=== PATIENT | male | born 2000 | race Caucasian/White ===

== ENCOUNTER 2021-03-21 18:24 | Emergency (ER) | payer MEDICAID, SELFPAY ==
--- NOTE | ~2021-03-21 | XR_ITS ---
EXAMINATION: XR chest 1V CLINICAL INFORMATION: Reason for Exam COUGH X 2 WEEKS, SOB COMPARISON: Chest radiograph 03/24/2019 TECHNIQUE: One view of the chest XR/XR chest 1V FINDINGS/IMPRESSION: Approximately 1.4 cm right basilar airspace opacity with an almost nodular appearance new from prior. Differential considerations would include developing infection if clinical history is appropriate, asymmetric appearance of a nipple shadow which could be confirmed with oblique radiographs with nipple markers, alternatively an underlying pulmonary nodule, which could be confirmed with a chest CT. Recommend correlation with clinical history and follow-up imaging as appropriate and to ensure resolution. No pneumothorax. No pleural effusion. Normal cardiomediastinal silhouette.
[2021-03-21 18:46] VITALS: PULSE 120; RESP 18; TEMP 36.7; O2SAT 99; BMI 16.0
[2021-03-21 19:21] VITALS: BP 129/71; PULSE 110; RESP 17; TEMP 37.9; O2SAT 97
[2021-03-21] MEDS: Ibuprofen 600 MG TABLET PO (19:35)
[2021-03-21 19:42] LABS: COVID-19 Test Negative (Negative); IDNOW Serial# 9DD0AD1C
--- NOTE | 2021-03-21 20:00 | ED_ITS ---
HPI - General Adult General Chief complaint: General Medical Stated complaint: asthma,sob Time Seen by Provider: 03/21/21 19:43 Source: patient Mode of arrival: ambulatory Limitations: no limitations History of Present Illness HPI narrative: 20-year-old male presents to ED coughing for 2 weeks body aches and chills. Patient states receiving Moderna 2 doses. Patient has not received booster. Patient denies any shortness of breath. Patient states history of asthma Related Data Previous Rx's Medication Instructions Recorded azithromycin 250 mg tablet See Rx Instructions .ROUTE 03/21/21 .COMPLEX #6 tab doxycycline hyclate 100 mg capsule 100 mg PO BID 7 Days #14 cap 03/21/21 prednisone 20 mg tablet 40 mg PO DAILY 5 Days #10 tab 03/21/21 Allergies Allergy/AdvReac Type Severity Reaction Status Date / Time No Known Allergies Allergy Unverified 11/29/19 18:47 Review of Systems Review of Systems: Yes all other systems are reviewed and are negative Constitutional: Constitutional: Reports as per HPI and Reports no additional constitutional complaints Eyes: Eyes: Reports as per HPI and Reports no additional eye complaints ENT: Reports system reviewed and no additional complaints, except as documented and Reports as per HPI Cardiovascular: Cardiovascular: Reports as per HPI and Reports no additional cardiovascular complaints Respiratory: Respiratory: Reports as per HPI and Reports no additional respiratory complaints Gastrointestinal: Gastrointestinal: Reports as per HPI and Reports no additional gastrointestinal complaints Musculoskeletal: Musculoskeletal: Reports no additional musculoskeletal complaints and Reports as per HPI Neurologic: Reports system reviewed and no additional complaints, except as documented and Reports as per HPI Psychiatric: Psychiatric: Reports no additional psychiatric complaints and Reports as per HPI [facility] Social History Social History Advance Directives: No Advance Directives Information Provided: No Physical Exam Vital Signs: Vital Signs: Last Vital Signs Temp 100.0 F 03/21/21 21:07 Pulse 109 H 03/21/21 21:07 Resp 17 03/21/21 21:07 BP 129/71 03/21/21 19:21 Pulse Ox 97 03/21/21 21:07 BMI result Body Mass Index 16.0 Const: General: cooperative, healthy appearing, comfortable, no acute distress, well developed, alert, awake and Physically active Orientation/consciousness: oriented to time and patient oriented x3 HENMT: Head: Yes normal to inspection, Yes No palpable skull fracture present, Yes normocephalic, Yes atraumatic and No abrasion Eyes: General: appearance normal, both eyes and all related structures Neck: Neck: Yes normal visual inspection, Yes full ROM, Yes no lymphadenopathy, Yes no meningeal signs, Yes trachea midline, Yes supple, No anterior neck swelling and No tender Chest: Chest palpation & inspection: normal inspection of the chest and normal palpation of entire chest wall Resp: Effort & Inspection: normal respiratory effort and able to speak in complete sentences Auscultation: clear to auscultation bilaterally Cardio: Jugular venous distension: no JVD Heart sounds: S1 normal heart sound present and S2 normal heart sound present GI: Inspection: Yes normal to inspection Palpation (GI): Soft to palpation, not firm, nontender, no guarding and not rigid : General: No CVA tenderness and Yes no CVA tenderness Back/Spine/Pelvis: Back: no CVA tenderness, No CVA tenderness and No back tenderness Skin: General skin exam: no rashes or lesions noted and elasticity normal Neuro: General: oriented to time, patient oriented x3, gait normal, no meningeal signs and CN's II-XI intact bilaterally Cranial nerves: Yes CN's II-XII intact bilaterally Extrem: General: Yes normal to inspection and Yes full ROM Psych: Appearance: grossly normal, well kempt and not disheveled Course Course Course Narrative: COVID chest x-ray ordered. Reevaluation(s) Reevaluation #1: COVID swab negative. Chest x-ray shows basilar opacity with history indicates pneumonia Time: 20:43 Medical Decision Making [facility] Narrative Medical decision making narrative: Pneumonia Lab Data Labs: Lab Results 03/21/21 Range/Units 18:48 COVID-19 (ESEQUIEL) Negative (Negative) COVID-19 Clin Com See Note Discharge Plan Discharge Clinical Impression: Pneumonia Patient Disposition: Home, Self-Care Instructions: Asthma (ED), Community Acquired Pneumonia (ED) Additional Instructions: Chest x-ray shows early pneumonia he will be discharged with antibiotics. Covid test came back negative after 2 weeks. Will be also discharged with prednisone your asthma. Take albuterol inhaler as needed. Return to the ED for worsening shortness of breath, coughing up blood, weakness, dizziness, or any other concerning symptoms. Please follow up with your PCP. Prescriptions: New azithromycin 250 mg tablet See Rx Instructions .ROUTE .COMPLEX Qty: 6 RF: 0 doxycycline hyclate 100 mg capsule 100 mg PO BID 7 Days Qty: 14 RF: 0 prednisone 20 mg tablet 40 mg PO DAILY 5 Days Qty: 10 RF: 0 Stand Alone Forms: Work/School Release Interventions: ED Discharge Assessment Last Done: 03/21/21 21:08 Discharge Date/Time: 03/21/21 21:10 Print Language: Citizen Of [place]
[2021-03-21 21:07] VITALS: PULSE 109; RESP 17; TEMP 37.8; O2SAT 97
== END 2021-03-21 21:10 | disposition home or self-care (01) ==
PROVIDERS: Emergency Provider Emergency Medicine
DX: J18.9 Pneumonia, unspecified organism (principal); Z20.822 Contact with and (suspected) exposure to COVID-19; R50.9 Fever, unspecified; J45.909 Unspecified asthma, uncomplicated
CPT/HCPCS: 71045; 87635; 99283; 99284

== ENCOUNTER 2024-12-25 10:06 | Outpatient (REF) | payer MEDICAID, SELFPAY ==
[2024-12-25 11:25] LABS: Alanine Aminotransferase 24 U/L (0-40); Albumin Level 4.7 g/dL (3.5-5.0); Alkaline Phosphatase 68 U/L (39-117); Anion Gap 9 (12-20); Aspartate Amino Transferase 24 U/L (5-37); Blood Urea Nitrogen 10 mg/dL (9-16); Calcium 9.0 mg/dL (8.4-10.2); Carbon Dioxide 28 mmol/L (22-29); Chloride 109 mmol/L (96-108); Cholesterol 182 mg/dL (<200); Estimated Glomerular Filt Rate > 60; HDL Cholesterol 63 mg/dL (>40); Potassium 4.8 mmol/L (3.3-5.1); Sodium 141 mmol/L (135-145); Total Protein 7.2 g/dL (6.5-8.0); Triglycerides 58 mg/dL (<150)
--- OUTSIDE RECORDS SUMMARY | 2024-12-25 11:40 | XMS_ITS | Clinical Summary ---
Author Organization [email or web address] Address [address] [place] [address] Care Team Providers Care Shirt Marker Name Role Phone NameMartin MD Primary Care Provider [phone] Allergies No known active allergies Medications Melatonin 10 MG tablet dispersible Take by mouth. Active Encounters Date Type Department Care Team Description 12/14/2024 1:15 PM EDT Office Visit [facility] [address] [place] [address] [phone] Martin Duron MD Insomnia, unspecified type (Primary Dx); Screening examination for STI; Screening for diabetes mellitus; Screening cholesterol level; Impacted cerumen of left ear; Vaccination refused by patient 12/14/2024 Travel 12/13/2024 Telephone [facility] [address] [place] [address] [phone] Martin Duron MD CHARTPREP 12/07/2024 Patient Outreach [facility] [address] [place], [place] [phone] Martin Duron MD Pre-visit Planning (SDOH negative. Tobacco screening negative) from Last 3 Months Family History Medical History Relation Name Comments No Known Problems Brother No Known Problems Father No Known Problems Mother No Known Problems Sister 1 No Known Problems Sister 2 Relation Name Status Comments Brother Alive Father Alive Mother Alive Sister 1 Alive Sister 2 Alive Social History Tobacco Use Types Packs/Day Years Used Date Smoking Tobacco: Never Smokeless Tobacco: Never Tobacco Cessation:Counseling Given: Not Answered Alcohol Use Standard Drinks/Week Comments Never 0 (1 standard drink = 0.6 oz pur e alcohol) Housing Stability Answer Date Recorded What is your housing situation today? I have [place] 12/07/[address] you li ve. Do you have problems with any of the following? None of the above 12/07/2024 Food Insecurity Answer Date Recorded Within the past 12 months, y ou worried that your food would run out before you got money to buy more: Never True 12/07/2024 Within the past 12 months,th e food you bought just didn't last and you didn't have enough money to get more: Never True Transportation Answer Date Recorded In the past 12 months, has l ack of transportation kept you from medical appts, meetings, work or from getting things needed for daily living? No 12/07/2024 Utilities Answer Date Recorded In the past 12 months, has t he electric, gas, oil or water company threatened to shut off services in your home? No 12/07/2024 Internet Access Answer Date Recorded Internet Access Q1 Yes 12/07/2024 Internet Access Q2 Not on file 12/07/2024 Sex and Gender Information Value Date Recorded Sex Assigned at Male 01/11/2022 10:22 AM EDT Legal Sex Male 10:22 AM EDT Gender Identity Male 01/11/2022 10:22 AM EDT Sexual Orientation Straight 01/11/2022 10 :22 AM EDT Last Filed Vital Signs Vital Sign Reading Time Taken Comments Blood Pressure 110/82 12/14/2024 1:14 PM EDT Pulse 74 12/14/2024 1:14 PM EDT Temperature 36.4 C (97.6 F) 12/14/2024 1:14 PM EDT Respiratory Rate 18 12/14/2024 1:14 PM EDT Oxygen Saturation 98% 12/14/2024 1:14 PM EDT Inhaled Oxygen Concentration - - Weight 57.9 kg (127 lb 9.6 oz) 12/14/2024 1:14 P M EDT Height 175.3 cm (5' 9 ) 12/14/2024 1:14 PM EDT Body Mass Index 18.84 12/14/2024 1:14 PM EDT Plan of Treatment Health Maintenance Due Date Last Done Comments Depression Screening 2000 HIV Screening 2000 Disability Screening 2000 Family Planning (PISQ) 2015 Hepatitis C Screening 2018 Pneumococcal Vaccine: Pediatrics (0 to 5 Years) and At-Risk Patients (6 to 49) Years (1 of 2 - PCV) 2019 DTaP/Tdap/Td Vaccines (6 - Td or Tdap) 01/19/2024 01/18/2014, 04/05/2005, 05/24/2001, Additional history exists COVID-19 Vaccine (3 - season) 2024 09/25/2020, 08/28/2020 Influenza Vaccine (#1) 2024 8, 11/25/2016, 12/06/2014, Additional history exists SDOH Screening 12/07/2025 12/07/2024 Alcohol/Substance Use Screening 12/14/2025 12/14/2024 Tobacco Screening 12/14/2025 12/14/2024 Zoster Vaccines (1 of 2) 2050 RSV Patients and Patients Aged 60 years or older (1 - 1-dose 75+ series) 2075 Hepatitis B Vaccines Completed 2000, 2000, 2000 HIB Vaccines Completed 2002, 05/12, 2000, Additional history exists IPV Vaccines Completed 04/05/2005, 11/12, 2000, Additional history exists HPV Vaccines Completed 07/07/2015, 11/13, 01/18/2014 Hepatitis A Vaccines Completed 07/07/2015, 12/07/19 15 Meningococcal Vaccine Completed 11/25/2016, 014 Meningococcal B Vaccine Aged Out No l onger eligible based on patient's age to complete this topic RSV under 20 months Aged Out No longe r eligible based on patient's age to complete this topic Rotavirus Vaccines Aged Out No longer eligible based on patient's age to complete this topic Procedures Procedure Name Priority Date/Time Associated Diagnosis Comments LIPID PANEL, STANDARD Routine 12/25/2024 10:22 AM EDT Screening cholesterol level COMPREHENSIVE METABOLIC PANEL Routine 12/25/2024 10:22 AM EDT Screening for diabetes mellitus from Last 3 Months Results * (ABNORMAL) Lipid Panel, Standard (12/25/2024 10:22 AM EDT) Triglycerides 58 <150 mg/dL [facility] Comment:Desirable Triglyceri de: less than 150 mg/dLBorderline High Triglyceride 150-199 mg/dLHigh Triglyceride: 200-499 mg/dLVery High Triglyceride: greater than or equal to 5OO mg/dL Cholesterol 182 <200 mg/dL [facility] Comment:Desirable Cholestero l: less than 200 mg/dLBorderline High Cholesterol: 200-239 mg/dLHigh Cholesterol: greater than 239 mg/dL LDL Cholesterol Calculated 108(H) <100 mg/dL [facility] Comment:Desirable LDL: less than 100 mg/dLNear Optimal/Above Optimal LDL: 110- 129 mg/dLBorderline High LDL: 130-159 mg/dLHigh LDL: 160-189 mg/dLVery High LDL: greater than or equal to 190 mg/dL HDL Cholesterol 63 >40 mg/dL [facility] Comment:Desirable HDL: great er than 40 mg/dL Note: This HDL assay may give artificially low results in patients with liver disease. Blood Venous blood specimen / Unknown 12/25/2024 10:22 AM EDT 12/25/2024 10:22 AM EDT us Martin Name MD LAB BLOOD ORDERABLES Final Resul t [facility] [address] [place] [phone] * (ABNORMAL) Comprehensive Metabolic Panel (12/25/2024 10:22 AM EDT) Sodium 141 135 - 145 mmol/L [facility] Potassium 4.8 3.3 - 5.1 mmol/L [facility] Chloride 109(H) 96 - 108 mmol/L [facility] Carbon Dioxide 28 22 - 29 mmol/L [facility] Anion Gap 9(L) 12 - 20 [facility] Urea Nitrogen (BUN) 10 9 - 16 mg/dL [facility] Creatinine, Serum 1.01 0.5 - 1.4 mg/dL [facility] Estimated Glomerular Filt Rate >60 [facility] Comment:Chronic Kidney Disea se: Estimated GFR < 60 mL/min/[id number] Kidney Disease: Estimated GFR < 15 mL/min/1.73m2 Glucose 88 60 - 115 mg/dL [facility] Calcium 9.0 8.4 - 10.2 mg/dL [facility] Bilirubin, Total 0.7 0.0 - 1.0 mg/dL [facility] Aspartate Amino Transferase 24 5 - 37 U/L [facility] Alanine Aminotransferase 24 0 - 40 U/L [facility] Total Protein 7.2 6.5 - 8.0 g/dL [facility] Albumin Level 4.7 3.5 - 5.0 g/dL [facility] Alkaline Phosphatase 68 39 - 117 U/L [facility] Blood Venous blood specimen / Unknown 12/25/2024 10:22 AM EDT 12/25/2024 10:22 AM EDT us Martin Duron MD LAB BLOOD ORDERABLES Final Resul t [facility] [address] [place] [address] [phone] from Last 3 Months Insurance * Guarantor: Mele Wright Account Type Relation to Patient Date of Phone Billing Address Personal/Family Self [address] [place] [address] [facility] * Guarantor: Mele Wright Account Type Relation to Patient Date of Phone Billing Address Personal/Family Self [address] [place] [address] * Guarantor: Mele Wright Account Type Relation to Patient Date of Phone Billing Address Personal/Family Self [address] [place] [address] * Guarantor: Mele Wright Account Type Relation to Patient Date of Phone Billing Address Personal/Family Self [address] [place] [address] Care Teams Shirt Marker Relationship Specialty Start Date End Date Name, MD Martin [address] [place] [address] [place] [address] PCP - General Internal Medicine 12/13/24
--- OUTSIDE RECORDS SUMMARY | 2024-12-25 11:40 | XMS_ITS | Encounter Summary ---
Author Organization [employer] Address [address] [place] [address] [address] [place] [address] Care Team Providers Care Utility Helicopter Repairer Name Role Phone Name, Martin BENNETT Primary Care Provider [phone] Encounter Details Date Type Department Care Team (Latest Contact Info) Description 11/06/2020 Abstract [facility] Dental, Provider, DDS Social History Tobacco Use Types Packs/Day Years Used Date Smoking Tobacco: Never Assessed Sex and Gender Information Value Date Recorded Sex Assigned at Male 01/11/2022 10:22 AM EDT Legal Sex Male 10:22 AM EDT Gender Identity Male 01/11/2022 10:22 AM EDT Sexual Orientation Straight 01/11/2022 10 :22 AM EDT documented as of this encounter Plan of Treatment Not on file documented as of this encounter Visit Diagnoses Not on filedocumented in this encounter Care Teams Utility Helicopter Repairer Relationship Specialty Start Date End Date Name, MD Martin [address] [place] [address] PCP - General Internal Medicine 12/13/24 documented as of this encounter
[2024-12-25 12:13] LABS: HBS Num1 1.23 mIU/mL (0-7.99); HBsAGNum1 0.37 S/CO (0.00-0.99); HIV Num 1 0.07 S/CO (0.00-0.99); Hepatitis B Surface Antigen Negative (Negative); ~HepC Num1 0.07 S/CO (0.00-0.79); ~Hepatitis B Surface Antibody NONREACTIVE (Nonreactive); ~Hepatitis C Antibody Nonreactive (Nonreactive)
== END 2024-12-25 10:07 | disposition home or self-care (01) ==
LOC: HO.LAB 10:06
PROVIDERS: PCP Internal Medicine Geriatric Medicine; Visit Provider Internal Medicine Geriatric Medicine
DX: Z11.3 Encounter for screening for infections with a predominantly sexual mode of transmission (principal); Z13.1 Encounter for screening for diabetes mellitus; Z13.220 Encounter for screening for lipoid disorders; Z11.4 Encounter for screening for human immunodeficiency virus [HIV]; Z11.59 Encounter for screening for other viral diseases
CPT/HCPCS: 36415; 80053; 80061; 86592; 86706; 86803; 87340; 87389